=== PATIENT | male | born 1960 | race Caucasian/White ===

== ENCOUNTER → 2016-10-25 | Outpatient (CLI) | payer OTHER ==
[~2016-10-25] VITALS: Ht 167.6 cm; Wt 66.0 kg
[~2016-10-25] MED LIST: AMITRIPTYLINE H25 M2 PO; AMITRIPTYLINE H50 M2 PO; APAP500; ASPIR 8181 MG PO; ATENOLOL 50MG T50 MG PO; AUGMENTIN 875875 MG; BACTRIM DS TAB1 EACH PO; CAL-MAG TABLET1 EACH PO; CARISOPRODOL 3350 MG PO; CLONAZEPAM 0.50.5 M1 PO; CLONAZEPAM 1 MG1 M1 PO; COQ-10100 MG PO; DICLOFENAC SODI75 M1 PO; FELDENE20 MG PO; FIBER500 MG PO; FLEXERIL PO; FOLIC ACID 40400 MCG PO; GABAPENTIN100 MG PO; GLUCOSAMINE &1 EAC1 PO; GRALISE600 MG PO; HYDROCODON-ACE1 EAC5 PO; HYDROCODON-ACE1 EAC8 PO; IRON325 PO; LEVOTHROID50 MCG PO; LIDOCAINE CREAM 4% TOP; LIPITOR40 MG PO; LISINOPRIL10 MG PO; LOPRESSOR100 M1 PO; LOPRESSOR50 PO; LORTABELXR PO; LOVAZA1000 MG PO; MOBIC7.5 MG PO; NEXIUM40 MG PO; NORCO 10-325 T1 EACH PO; NORCO 7.5-3251 EACH PO; PHENERGAN 25 MG25 M1 PO; RABANO YOD50 MG/15 M PO; ROZEREM 8 MG TAB8 MG PO; SAVELLA100 MG PO; SAVELLA50 MG PO; SINGULAIR 10 MG10 MG PO; TOPIRAMATE50 MG PO; TRAMADOL 50 MG50 MG PO; TRICOR145 MG PO; TRILIPIX135 MG PO; UNICOMPLEX M TA1 TA1 PO; VASCEPA1 GM PO; VENTOLIN HFA 1818 GM INH; VITAMIN D 5050000 I1; VOLTAREN50 MG PO; ZANAFLEX4 MG PO; ZYRTEC10 M5 PO; [UNRECOGNIZED DRUG - OTHER] PO
--- NOTE | ~2016-10-25 | HPC ---
[address] [place] [address] PAIN MANAGEMENT CONSULTATION Name: KAREN MOROCHO Room #: REG JAG Johnson#: [id number] Admission: 10/25/16 Attend Phys: Jorge Abdul DO Discharge: Date of : 56 Report #: [id number] THIS REPORT FOR: //name// CC: Salty Abdul The patient is a very pleasant 56-year-old gentleman being treated for symptomatic lumbosacral spondylosis and SI joint dysfunction. Diagnostic studies have given the good relief of low back SI mediated pain (L5-S1, S2 medial branch dorsal ramus). We progressed to a left RFL L5-S1, S2 at last visit 09/27/2016. The patient returns to the pain clinic today noting dramatic relief, perhaps 90% of the left low back pain. He wishes to proceed with the right RFL as we discussed at the prior visit. ASSESSMENT: Symptomatic lumbosacral spondylosis, SI joint dysfunction. PROCEDURE: After informed consent was obtained, the patient was taken to the fluoroscopy suite and placed in prone position. After sterile prep and drape, skin wheal was raised, three 10 mm RFK needles were placed to contact the right sacral alar notch, second needle was placed lateral to the S1 neural foramen, third needle was placed lateral to the S2 neural foramen. After appropriate impedance, sensory and motor testing was accomplished (numbers are on the chart) each needle was injected with 1 mL of 1% preservative-free Xylocaine, then heated to 80 degrees centigrade for 90 seconds and injected with 30 mg triamcinolone plus 0.5 percent preservative-free bupivacaine, all three needles removed. The area was cleansed, Band-Aids applied. The patient monitored for an appropriate period of time, discharged in good and stable condition. Followup is p.r.n. <ELECTRONICALLY SIGNED> By: Jorge Abdul DO 10/28/16 0917 [id number] 1936 Jorge Abdul DO /nt
[2016-10-25 12:52] VITALS: BP 125/75
== END ==
LOC: PAIN 07:07
DX: M47.817 Spondylosis without myelopathy or radiculopathy, lumbosacral region (principal); I10 Essential (primary) hypertension; F17.210 Nicotine dependence, cigarettes, uncomplicated

== ENCOUNTER 2017-10-21 11:12 | Emergency (ER) | payer OTHER ==
[~2017-10-21] VITALS: Ht 172.7 cm; Wt 54.4 kg
[~2017-10-21 11:12] MED LIST changes: +CIPROFLOXACIN500 M1 PO; +CLOBETASOL PRO0.5 GM TOP; +FLAGYL500 MG PO; +GLUCOSAMINE HC500 MG PO; +HORIZANT600 MG PO; +L-TRYPTOPHAN500 MG PO; +MELATONIN5 M1 PO; +POTASSIUM20 PO; +TROKENDI XR100 MG PO; +VITAMIN D3400 UNIT PO; +VOLTAREN GEL 1100 G2 TOP
[2017-10-21 12:55] LABS: HEMATOCRIT 40.7 % (42.0-52.0); HEMOGLOBIN 13.8 gm/dL (14.0-18.0); MCH 30.9 pg (26.0-34.0); MCV 90.7 fL (80.0-100.0); PLATELET COUNT 318 thou/uL (150-400); RBC 4.49 mil/uL (4.50-6.00); RDW 13.7 % (10.5-14.5); WBC 7.6 thou/uL (4.0-11.0)
[2017-10-21 13:04] LABS: CALCIUM 9.1 mg/dL (8.5-10.1); CREATININE 1.1 mg/dL (0.7-1.3); POTASSIUM 3.8 mmol/L (3.5-5.1)
[2017-10-21 13:09] LABS: ALBUMIN 3.7 g/dL (3.4-5.0); TOTAL BILIRUBIN 0.3 mg/dL (<0.1-1.0); TOTAL PROTEIN 6.6 g/dL (6.4-8.2)
[2017-10-21 13:21] LABS: ANISOCYTOSIS SLIGHT
[2017-10-21 15:18] LABS: URINE BILIRUBIN NEGATIVE (Negative); URINE BLOOD NEGATIVE (Negative); URINE CLARITY CLEAR; URINE COLOR YELLOW; URINE GLUCOSE-RANDOM* NEGATIVE (Negative); URINE KETONES NEGATIVE (Negative); URINE LEUKOCYTES NEGATIVE (Negative); URINE NITRITE NEGATIVE (Negative); URINE PROTEIN (DIPSTICK) NEGATIVE (Negative); URINE UROBILINOGEN 0.2 E.U./dl (0.2-1.0)
[2017-10-21 16:04] VITALS: BP 120/65
[2018-05-02] MEDS ORDERED: PYRIDIUM200 MG PO (14:13)
== END 2017-10-21 16:04 | disposition home or self-care (01) ==
LOC: ER 11:12
PROVIDERS: Physician Assistant
DX: R19.7 Diarrhea, unspecified (principal); R10.9 Unspecified abdominal pain; I10 Essential (primary) hypertension; Z90.49 Acquired absence of other specified parts of digestive tract; Z98.890 Other specified postprocedural states; Z91.048 Other nonmedicinal substance allergy status; Z88.1 Allergy status to other antibiotic agents; Z88.3 Allergy status to other anti-infective agents; Z88.8 Allergy status to other drugs, medicaments and biological substances; Z88.2 Allergy status to sulfonamides; Z91.018 Allergy to other foods

== ENCOUNTER 2017-12-12 17:10 | Emergency (ER) | payer OTHER ==
[~2017-12-12] VITALS: Ht 175.3 cm; Wt 81.7 kg
[2017-12-12 18:25] LABS: ABSOLUTE NEUTROPHILS 4.6 thou/uL (1.4-8.2); BASOPHILS 0.9 % (0.0-2.0); EOSINOPHILS 3.2 % (0.0-3.0); HEMATOCRIT 42.1 % (42.0-52.0); HEMOGLOBIN 14.1 gm/dL (14.0-18.0); LYMPHOCYTES 32.5 % (24.0-44.0); MCH 30.3 pg (26.0-34.0); MCHC 33.4 g/dL (28.0-37.0); MCV 90.8 fL (80.0-100.0); MONOCYTES 8.5 % (1.0-8.0); PLATELET COUNT 387 thou/uL (150-400); POLYS 54.9 % (36.0-66.0); RBC 4.64 mil/uL (4.50-6.00); RDW 13.6 % (10.5-14.5); WBC 8.3 thou/uL (4.0-11.0)
[2017-12-12 18:47] LABS: ALBUMIN 3.9 g/dL (3.4-5.0); CREATININE 1.3 mg/dL (0.7-1.3); DIRECT BILIRUBIN 0.1 mg/dL (<0.1-0.3); POTASSIUM 3.5 mmol/L (3.5-5.1); TOTAL BILIRUBIN 0.3 mg/dL (<0.1-1.0); TOTAL PROTEIN 7.4 g/dL (6.4-8.2)
[2017-12-12 19:26] LABS: URINE BILIRUBIN NEGATIVE (Negative); URINE BLOOD NEGATIVE (Negative); URINE CLARITY CLEAR; URINE COLOR YELLOW; URINE GLUCOSE-RANDOM* NEGATIVE (Negative); URINE KETONES NEGATIVE (Negative); URINE LEUKOCYTES NEGATIVE (Negative); URINE NITRITE NEGATIVE (Negative); URINE PROTEIN (DIPSTICK) NEGATIVE (Negative); URINE SPECIFIC GRAVITY <= 1.005 (1.005-1.035); URINE UROBILINOGEN 0.2 E.U./dl (0.2-1.0)
[2017-12-12] MEDS ORDERED: VANCOCIN 125 M125 M1 PO (20:24)
[2017-12-12 20:56] VITALS: BP 117/75
[2018-05-02] MEDS ORDERED: PYRIDIUM200 MG PO (14:13)
== END 2017-12-12 20:56 | disposition home or self-care (01) ==
LOC: ER 17:10
PROVIDERS: Emergency Medicine
DX: A04.72 Enterocolitis due to Clostridium difficile, not specified as recurrent (principal)